=== PATIENT | male | born 1950 | race Caucasian/White ===

== ENCOUNTER 2021-03-22 08:58 | Inpatient (IN) | payer MEDICARE, OTHER ==
[~2021-03-22] VITALS: Ht 175.3 cm; Wt 84.8 kg
--- NOTE | 2021-03-22 09:20 | NUR ---
IV LINE IS ESTABLISHED, BLOOD SPECIMEN COLLECTED AND SENT TO THE LAB. THE LINE IS SALINE LOCKED.
--- NOTE | 2021-03-22 09:21 | NUR ---
X-RAY TECH AT THE BEDSIDE
--- NOTE | 2021-03-22 09:25 | NUR ---
URINE COLLECTED AND SENT TO THE LAB
[2021-03-22 09:26] LABS: HEMOGLOBIN 14.1 g/dL (13.5-17.5); MONOCYTES # (AUTO) 0.6 K/uL (0.1-1.30); MONOCYTES % (AUTO) 7.8 % (2.0-12.0)
--- NOTE | 2021-03-22 09:26 | NUR ---
THE PATIENT IS TAKEN TO CT VIA RNEY
--- NOTE | 2021-03-22 09:29 | NUR ---
MOVE SHEET SUBMITTED
[2021-03-22] MEDS ORDERED: IV NS 0.9% 500 ML BAG IV ONE (09:30)
[2021-03-22 09:34] LABS: CALCIUM, SERUM 9.4 mg/dL (8.5-10.1); CARBON DIOXIDE 31 mmol/L (21-32); CHLORIDE 99 mmol/L (98-107); CREATININE 1.1 mg/dL (0.6-1.3); GLUCOSE 102 mg/dL (74-106); POTASSIUM 4.3 mmol/L (3.5-5.1); SODIUM SERUM 137 mmol/L (136-145); UREA NITROGEN, BLOOD 7 mg/dL (7-18)
--- NOTE | 2021-03-22 09:35 | NUR ---
THE PATIENT IS BACK FROM CT VIA [facility]
[2021-03-22 09:40] LABS: ALANINE AMINOTRANSFERASE 17 U/L (12-78); ALBUMIN 3.5 g/dL (3.4-5.0); ALKALINE PHOSPHATASE 97 U/L (46-116); ASPARTATE AMINOTRANSFERASE 14 U/L (15-37); BILIRUBIN,DIRECT 0.2 mg/dL (0.0-0.2); BILIRUBIN,TOTAL 0.7 mg/dL (0.2-1.0); TOTAL PROTEIN, SERUM 6.8 g/dL (6.4-8.2)
[2021-03-22 10:06] LABS: BASOPHILS % (AUTO) 0.6 % (0.0-2.0); EOSINOPHILS % (AUTO) 2.1 % (0.0-6.0); HEMATOCRIT 42 % (39-51); LYMPHOCYTES # (AUTO) 0.5 K/uL (0.8-4.8); LYMPHOCYTES % (AUTO) 5.8 % (20.0-44.0); MEAN CORPUSCULAR HGB CONC 33 g/dl (31.0-36.0); MEAN CORPUSCULAR VOLUME 96 fL (80-96); NEUTROPHILS # (AUTO) 6.8 K/uL (1.8-8.9); NEUTROPHILS % (AUTO) 83.7 % (43.0-81.0); PLATELET COUNT (AUTO) 215 K/uL (150-450); RED BLOOD CELL COUNT(AUTO) 4.43 MIL/uL (4.5-6.0); WHITE BLOOD COUNT (AUTO) 8.1 K/uL (4.3-11.0)
[2021-03-22 10:25] LABS: BILIRUBIN,URINE NEGATIVE (NEGATIVE); LEUKOCYTE ESTERASE ,URINE SMALL (NEGATIVE); NITRITE, URINE NEGATIVE (NEGATIVE); PROTEIN,URINE NEGATIVE (NEGATIVE); UGLUCOSE NEGATIVE (NEGATIVE); UROBILINOGEN,URINE 0.2 EU/dL (0.2)
--- NOTE | 2021-03-22 10:32 | NUR ---
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
[2021-03-22] MEDS ORDERED: ASPI-1420 PO (10:40)
[2021-03-22] MEDS ORDERED: ATOR10TA PO (10:40)
[2021-03-22] MEDS ORDERED: ACET-2605 PO (10:40)
[2021-03-22] MEDS ORDERED: ESCI10TA PO (10:40)
[2021-03-22] MEDS ORDERED: MULT-447 PO (10:40)
[2021-03-22] MEDS ORDERED: TRAZ-257 PO (10:40)
[2021-03-22] MEDS ORDERED: FURO20TA4 PO (10:40)
[2021-03-22] MEDS ORDERED: TAMS-12 PO (10:40)
[2021-03-22] MEDS ORDERED: OLAN20TA3 PO (10:40)
[2021-03-22] MEDS ORDERED: UMEC62.5 INH (10:40)
[2021-03-22] MEDS ORDERED: LORA-259 PO (10:40)
[2021-03-22] MEDS ORDERED: MELA5TAB PO (10:40)
[2021-03-22] MEDS ORDERED: IBUP-1955 PO (10:40)
[2021-03-22] MEDS ORDERED: BUDE10.22 IH (10:40)
[2021-03-22] MEDS ORDERED: ALEN70TA80 PO (10:40)
[2021-03-22] MEDS ORDERED: DEUT6TAB PO (10:40)
[2021-03-22 10:44] LABS: COLOR,URINE STRAW (YELLOW)
--- NOTE | 2021-03-22 11:01 | NUR ---
Jordon swartz in [facility] - 03/22/21 at 1104 by LAUREN GOING TO 327.2
[2021-03-22] MEDS ORDERED: Z GUARD REMEDY 2 OZ OINT TP PRN (11:30)
[2021-03-22] MEDS ORDERED: MAGNESIUM HYDROXIDE 30 ML UDC PO PRN (11:30)
[2021-03-22] MEDS ORDERED: ACETAMINOPHEN 325 MG TABLET PO PRN (11:30)
[2021-03-22] MEDS ORDERED: MAG HYDROX/AL HYDROX/SIMETH 30 ML UDC PO PRN (11:30)
[2021-03-22] MEDS ORDERED: ONDANSETRON HCL/PF 4 MG/2 ML VIAL IVP PRN (11:30)
[2021-03-22] MEDS ORDERED: ACETAMINOPHEN ES 500 MG TABLET PO PRN (11:30)
[2021-03-22] MEDS ORDERED: IBUPROFEN 600 MG TABLET PO PRN (11:30)
--- NOTE | 2021-03-22 12:10 | NUR ---
COVID PCR SWAB DONE AND SENT TO THE LAB
[2021-03-22] MEDS: IV NS 0.9% 1,000 ML IV PRN (12:23)
[2021-03-22] MEDS ORDERED: IBUPROFEN 600 MG TABLET ONE (12:24)
--- NOTE | 2021-03-22 12:57 | NUR ---
HAN FROM [facility] [phone] CALLED TO LEARN ABOUT STATUS OF PT.
[2021-03-22 13:05] LABS: BACTERIA,URINE Rare /HPF (None Seen); RBC,URINE NONE SEEN /HPF (0-2); SQUAMOUS EPITHELIAL CELL,UR Rare /HPF (None Seen); URINE AMORPHOUS URATE Few /HPF (None Seen); WBC,URINE 0-4 /HPF (0-3)
--- NOTE | 2021-03-22 13:06 | NUR ---
THE PATIENT IS SERVED PUREED FOOD. TOLERATED DIET WELL. WILL CONTINUE TO MONITOR THE PATIENT.
[2021-03-22] MEDS ORDERED: DEUTETRABENAZINE 12 MG PO SCH (17:00)
[2021-03-22] MEDS ORDERED: Medication Not On Formulary EA (Budesonide/Formoterol Fumarate (Symbicort 80-4.5 Mcg Inh IH SCH (17:00)
--- NOTE | 2021-03-22 19:29 | NUR ---
REPORT GIVEN TO NURSE WILLIAMSON FOR BHASKAR
--- NOTE | 2021-03-22 20:15 | NUR ---
REPORT GIVEN TO MICA
--- NOTE | 2021-03-22 20:15 | NUR ---
RN NOTE REPORT RECEIVED BY MARY LOU WILLIAMSON.
--- NOTE | 2021-03-22 20:40 | NUR ---
PT TRANSFERRED TO ROOM 117 ON COPY TECHNICIAN PER ACLS PROTOCOL WITHOUT INCIDENT.
[2021-03-22 20:50] VITALS: BP 112/69
--- NOTE | 2021-03-22 21:00 | NUR ---
RN NOTE PT TRANSFERRED TO [facility]IA GURNEY FROM ER. PT IS ON ROOM AIR SHOWING NO S/S OF RESP DISTRESS/SOB. BREATHING EVEN AND UNLABORED. CARDOSO CATH NOTED. PT IS ALERT AND ORIENTED X23. SKIN INTACT. IV ACCESS NOTED ON RIGHT FA #20, 0.9% NS RUNNING AT 75 ML/HR. LINE FLUSHED, PATENT, AND INTACT WITH NO SIGNS OF INFILTRATION. ALL SAFETY MEASURES IMPLEMENTED. CALL LIGHT WITHIN REACH. BED ALARM ON. BED LOCKED AND IN LOWEST POSITION. WILL CONTINUE TO MONITOR AND ASSESS FOR ANY CHANGES DURING SHIFT.
[2021-03-22] MEDS: TAMSULOSIN 0.4 MG CAP.SR.24H PO SCH (21:47)
[2021-03-22] MEDS: ESCITALOPRAM OXALATE (10 MG) 10 MG TABLET PO SCH (21:47)
[2021-03-22] MEDS: OLANZAPINE 10 MG TABLET PO SCH (21:47)
[2021-03-22] MEDS: ATORVASTATIN 10 MG TABLET PO SCH (21:48)
--- NOTE | 2021-03-22 23:54 | NUR ---
RN NOTE PT COMPLAINING OF 7-8/10 SHARP PAIN IN LEGS. SPOKE WITH LEIGHTON SHANNON, SHIVA ORDERED NORCO 5/325 PO Q6H PRN. ORDER NOTED AND CARRIED OUT.
[2021-03-23] MEDS: HYDROCODONE/APAP 5/325MG TABLET PO PRN ×3 (00:44→15:50)
[2021-03-23] MEDS: IV NS 0.9% 1,000 ML IV PRN (03:24)
[2021-03-23 04:00] VITALS: BP 96/69
--- NOTE | 2021-03-23 06:48 | NUR ---
RN NOTE NO CHANGES IN PT CONDITION DURING SHIFT. PT IS ON ROOM AIR SHOWING NO S/S OF RESP DISTRESS/SOB. BREATHING EVEN AND UNLABORED. PT IS ALERT AND ORIENTED X2-3. IV ACCESS NOTED ON RIGHT FA #20, 0.9% NS RUNNING AT 75 ML/HR. LINE FLUSHED, PATENT, AND INTACT WITH NO SIGNS OF INFILTRATION. ALL DUE MEDS GIVEN ORDERED. PT KEPT CLEAN AND COMFORTABLE. ALL SAFETY MEASURES IMPLEMENTED. CALL LIGHT WITHIN REACH. BED ALARM ON. BED LOCKED AND IN LOWEST POSITION. WILL ENDORSE TO MORNING SHIFT RN FOR BHASKAR.
[2021-03-23 07:34] LABS: BASOPHILS # (AUTO) 0.1 K/uL (0.0-0.2); BASOPHILS % (AUTO) 0.7 % (0.0-2.0); EOSINOPHILS % (AUTO) 2.2 % (0.0-6.0); HEMATOCRIT 40 % (39-51); HEMOGLOBIN 13.6 g/dL (13.5-17.5); LYMPHOCYTES # (AUTO) 0.6 K/uL (0.8-4.8); LYMPHOCYTES % (AUTO) 7.4 % (20.0-44.0); MEAN CORPUSCULAR HGB CONC 34 g/dl (31.0-36.0); MEAN CORPUSCULAR VOLUME 95 fL (80-96); MONOCYTES # (AUTO) 0.7 K/uL (0.1-1.30); NEUTROPHILS # (AUTO) 6.5 K/uL (1.8-8.9); NEUTROPHILS % (AUTO) 80.7 % (43.0-81.0); PLATELET COUNT (AUTO) 196 K/uL (150-450); RED BLOOD CELL COUNT(AUTO) 4.21 MIL/uL (4.5-6.0); WHITE BLOOD COUNT (AUTO) 8.1 K/uL (4.3-11.0)
[2021-03-23 08:00] LABS: CALCIUM, SERUM 8.8 mg/dL (8.5-10.1); MAGNESIUM 2.3 mg/dL (1.8-2.4); PHOSPHORUS 3.8 mg/dL (2.5-4.9); POTASSIUM 4.3 mmol/L (3.5-5.1)
--- NOTE | 2021-03-23 08:00 | NUR ---
RN OPENING NOTE RECEIVED PATIENT IN BED A/O X 2 ON 3L NC. PT HAS A R AC RUNNING 75ML/HR NS. NO SIGNS OF SOB OR DISTRESS NOTED AT THIS TIME. SAFETY PROTOCOL IN PLACE, BED IN LOWEST POSITION , 2 SIDE RAILS UP AND CALL LIGHT WITHIN REACH.
[2021-03-23] MEDS: ASPIRIN EC 81 MG TABLET.DR PO SCH (08:14)
[2021-03-23] MEDS: LORAZEPAM 1 MG TABLET PO PRN ×2 (09:16→15:50)
[2021-03-23 16:00] VITALS: BP 96/59
--- NOTE | 2021-03-23 18:48 | NUR ---
RN CLOSING NOTE PATIENT IN BED A/O X 3 ON 3L NC. WITH NO CURRENT SIGNS OF DISTRESS OR PAIN. PATIENT HAS IV ACCES ON RIGHT FA 20G SL. ALL MEDICATIONS WERE GIVEN THROUGH SHIFT AND NEEDS ATTENDED TO. SAFETY PROTOCOL IN PLACE, BED IN LOWEST POSITION , 2 SIDE RAILS UP AND CALL LIGHT WITHIN REACH. WILL ENDORSE TO NIGHT NURSE FOR BHASKAR.
[2021-03-23] MEDS: OLANZAPINE 10 MG TABLET PO SCH (21:59)
[2021-03-23] MEDS: ESCITALOPRAM OXALATE (10 MG) 10 MG TABLET PO SCH (22:00)
[2021-03-23] MEDS: ATORVASTATIN 10 MG TABLET PO SCH (22:00)
[2021-03-23] MEDS: TAMSULOSIN 0.4 MG CAP.SR.24H PO SCH (22:01)
[2021-03-24] MEDS: HYDROCODONE/APAP 5/325MG TABLET PO PRN ×2 (02:35→08:42)
[2021-03-24] MEDS: LORAZEPAM 1 MG TABLET PO PRN ×2 (02:35→08:41)
--- NOTE | 2021-03-24 03:38 | NUR ---
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
--- NOTE | 2021-03-24 07:26 | NUR ---
RN OPENING NOTE RECEIVED PATIENT IN BED A/O X 3 ON 3L NC. WITH NO CURRENT SIGNS OF DISTRESS OR PAIN. PATIENT HAS IV ACCES ON RIGHT FA 20G SL. SAFETY PROTOCOL IN PLACE, BED IN LOWEST POSITION , 2 SIDE RAILS UP AND CALL LIGHT WITHIN REACH.
[2021-03-24 08:00] VITALS: BP 91/64
[2021-03-24] MEDS: ASPIRIN EC 81 MG TABLET.DR PO SCH (08:41)
--- NOTE | 2021-03-24 09:27 | NUR ---
per [facility] pcr negative.
[2021-03-24 12:00] VITALS: BP 99/67
--- NOTE | 2021-03-24 12:25 | NUR ---
patient refused albright removed per pt he has that for a while r/t difficulty urinating. CM AWARE. MADE AWARE.
--- NOTE | 2021-03-24 13:24 | NUR ---
RN NOTE PATIENT WAS PICKED UP BY AMBULANCE WITH VITALS OF 98.6, HR 63, RESP 20, 02 94 AND BLOOD PRESSURE 99/67. PATIENT WILL BE TAKEN TO [facility].
[2021-03-24] MEDS ORDERED: BUDESONIDE RESPULE INH 0.5 MG/2 ML AMPUL.NEB NEB SCH (17:00)
[2021-03-24] MEDS ORDERED: ALBUTEROL FS 2.5 MG/0.5 ML VIAL.NEB NEB SCH (19:30)
[2021-03-25] MEDS ORDERED: FUROSEMIDE 20 MG TABLET PO SCH (09:00)
== END 2021-03-24 15:19 | DRG 189 ==
LOC: ER 09:03 → TRANSITION 12:10 → MEDSG1 19:32
PROVIDERS: ADMIT Internal Medicine; ATTEND Internal Medicine
DX: J81.1 Chronic pulmonary edema (principal); G93.41 Metabolic encephalopathy; Z20.822 Contact with and (suspected) exposure to COVID-19; G25.81 Restless legs syndrome; Z79.899 Other long term (current) drug therapy; F25.9 Schizoaffective disorder, unspecified
CPT/HCPCS: 36415; 70450-TC; 71045-TC; 80048-TC; 80076-TC; 81001; 83605-TC; 83735-TC; 84100-TC; 84484-TC; 85025-TC; 85730-TC; 87040-TC; 87081-TC; 87086-TC; 93307-TC; 97116-TC; 97530-TC; G0378; J7030; U0003